=== PATIENT | male | born 1950 | race Hispanic/Latino ===

== ENCOUNTER 2024-03-20 06:01 | Day surgery (SDC) | payer MEDICARE ==
[~2024-03-20] VITALS: Ht 157.5 cm; Wt 67.6 kg
[2024-03-20] VITALS (9 sets, daily range): BP systolic 104–130; BP diastolic 42–55; PULSE 50–58; RESP 14–17; TEMP 97.3–98
[~2024-03-20 06:01] MED LIST: 0.9%NACL 1000ML 1,000 ML IV ONE; ASPI-1197 PO; ATOR40TA69 PO; CLOP-31 PO; LEVE750T4 PO; LOSA50TA64 PO; MAGN400T7 PO; MEMA5TAB16 PO; METF-444 PO; MULT-1203 PO; TAMS-1 PO
[2024-03-20] MEDS ORDERED: proPOFol 10 MG/ML 20ML VIAL IV ONE ×2 (08:43)
== END 2024-03-20 10:10 | disposition home or self-care (01) ==
LOC: DAH 06:01 → ENDO 06:01
PROVIDERS: ATTEND Internal Medicine Gastroenterology
DX: R63.30 Feeding difficulties, unspecified (principal); K29.70 Gastritis, unspecified, without bleeding; B96.81 Helicobacter pylori [H. pylori] as the cause of diseases classified elsewhere; I10 Essential (primary) hypertension; G40.501 Epileptic seizures related to external causes, not intractable, with status epilepticus; Z86.73 Personal history of transient ischemic attack (TIA), and cerebral infarction without residual deficits; Z93.1 Gastrostomy status; Z79.899 Other long term (current) drug therapy
CPT/HCPCS: 43239; 43247; 82948 ×2; J7030 ×2; J2704 ×2; A4215 ×2; A4223; A4222; A4221; A4663; A4606; J3490